=== PATIENT | male | born 1995 | race African-American/Black ===

== ENCOUNTER 2018-04-20 05:57 | Emergency (ER) | payer MEDICAID ==
[~2018-04-20] VITALS: Ht 170.2 cm; Wt 59.0 kg
[2018-04-20] MEDS ORDERED: IBUPROFEN 800MG TABLET PO ONE (07:00)
[2018-04-20 08:17] VITALS: BP 118/72
== END 2018-04-20 08:20 | disposition home or self-care (01) ==
LOC: ER 05:57
DX: S00.83XA Contusion of other part of head, initial encounter (principal); Y35.393A Legal intervention involving other blunt objects, suspect injured, initial encounter; Y93.9 Activity, unspecified; Y92.9 Unspecified place or not applicable
CPT/HCPCS: 70486; 99284

== ENCOUNTER 2024-04-13 05:42 | Emergency (ER) | payer MEDICAID, OTHER ==
[~2024-04-13] VITALS: Ht 172.7 cm; Wt 72.0 kg
[2024-04-13 05:59] VITALS: TEMP 98.2; O2SAT 100
[2024-04-13 06:59] LABS: BASOPHILS % 0.5 % (0.0-2.0); EOSINOPHILS % 0.4 % (0.0-5.0); HEMATOCRIT. 42.1 % (42.0-52.0); HEMOGLOBIN. 14.2 g/dL (14.0-18.0); LYMPHOCYTES % 27.7 % (20.0-50.0); MEAN CORPUSCULAR HGB CONC 33.8 g/dL (31.0-37.0); MEAN CORPUSCULAR VOLUME 91.7 fL (80.0-94.0); MONOCYTES % 7.8 % (2.0-8.0); NEUTROPHILS % 63.6 % (40.0-76.0); PLATELET 260 x1000/uL (130-400); RED CELL DISTRIBUTION WIDTH 13.1 % (11.6-14.6)
[2024-04-13] MEDS: SODIUM CHLORIDE 0.9% 1,000 ML IV ONE (07:09)
[2024-04-13 07:13] LABS: CHLORIDE 107 mEq/L (98-107); POTASSIUM 3.3 mEq/L (3.5-5.1); SODIUM 142 mEq/L (136-145)
[2024-04-13 07:14] LABS: CALCIUM 9.7 mg/dL (8.7-10.4); CARBON DIOXIDE 26 mEq/L (21-32)
[2024-04-13 07:19] LABS: CREATININE 1.1 mg/dL (0.6-1.3); GLUCOSE 110 mg/dL (70-105); UREA NITROGEN BLOOD 10 mg/dL (9-23)
[2024-04-13 09:39] LABS: TROPONIN I HIGH SENSITIVITY < 4 ng/L (3.0-53)
[2024-04-13] MEDS ORDERED: FLUT9.9S BOTHNSTRLS (09:52)
[2024-04-13 10:25] VITALS: BP 127/88; PULSE 112; RESP 20
== END 2024-04-13 10:35 | disposition home or self-care (01) ==
LOC: ER 05:42
DX: H53.2 Diplopia (principal); R51.9 Headache, unspecified; J32.9 Chronic sinusitis, unspecified; R00.0 Tachycardia, unspecified
CPT/HCPCS: 99285; 70450; 96360; 71045; 80048; 83880; 85025; 84484; 36415; 70486; 93005; J7030